=== PATIENT | female | born 1990 | race Caucasian/White ===

== ENCOUNTER 2016-03-24 14:00 | Outpatient (RCR) | payer OTHER | END 2016-03-25 | disposition home or self-care (01) | LOC: M OUTALCOH 14:00 | PROVIDERS: ATTEND Psychiatry & Neurology Psychiatry | DX: F11.20 Opioid dependence, uncomplicated (principal); F17.200 Nicotine dependence, unspecified, uncomplicated ==

== ENCOUNTER → 2016-04-22 | Outpatient (RCR) | payer OTHER | LOC: M OUTALCOH 03-28 15:13 | PROVIDERS: ATTEND Psychiatry & Neurology Psychiatry | DX: F11.20 Opioid dependence, uncomplicated (principal); F17.200 Nicotine dependence, unspecified, uncomplicated ==

== ENCOUNTER 2016-05-22 15:00 | Outpatient (RCR) | payer SELFPAY | END 2016-05-23 | LOC: M OUTALCOH 15:00 | PROVIDERS: ATTEND Psychiatry & Neurology Psychiatry | DX: F11.20 Opioid dependence, uncomplicated (principal); F17.200 Nicotine dependence, unspecified, uncomplicated ==

== ENCOUNTER 2016-06-17 10:00 | Outpatient (RCR) | payer OTHER, SELFPAY | END 2016-06-22 | LOC: M OUTALCOH 10:00 | PROVIDERS: ATTEND Psychiatry & Neurology Psychiatry | DX: F11.20 Opioid dependence, uncomplicated (principal); F17.210 Nicotine dependence, cigarettes, uncomplicated ==

== ENCOUNTER → 2016-07-23 | Outpatient (RCR) | payer OTHER | LOC: M OUTALCOH 06-24 10:00 | PROVIDERS: ATTEND Psychiatry & Neurology Psychiatry | DX: F11.20 Opioid dependence, uncomplicated (principal); F17.201 Nicotine dependence, unspecified, in remission ==

== ENCOUNTER 2016-08-20 16:00 | Outpatient (RCR) | payer MEDICAID | END 2016-08-22 | LOC: M OUTALCOH 16:00 | PROVIDERS: ATTEND Psychiatry & Neurology Psychiatry | DX: F11.20 Opioid dependence, uncomplicated (principal); F17.200 Nicotine dependence, unspecified, uncomplicated ==

== ENCOUNTER → 2017-01-28 | Outpatient (CLI) | payer OTHER | LOC: M OUTALCOH 08:13 | PROVIDERS: ATTEND Psychiatry & Neurology Psychiatry | DX: F11.20 Opioid dependence, uncomplicated (principal) ==

== ENCOUNTER 2017-02-05 11:28 | Outpatient (RCR) | payer OTHER | END 2017-02-22 | LOC: M OUTALCOH 11:28 | DX: F11.20 Opioid dependence, uncomplicated (principal); F17.200 Nicotine dependence, unspecified, uncomplicated ==

== ENCOUNTER → 2017-03-04 | Outpatient (REF) | payer OTHER | LOC: M LAB REF 12:17 | DX: F19.11 Other psychoactive substance abuse, in remission (principal) ==

== ENCOUNTER → 2017-03-11 | Outpatient (REF) | payer OTHER | LOC: M LAB REF 19:30 | DX: F19.11 Other psychoactive substance abuse, in remission (principal) ==

== ENCOUNTER → 2017-03-18 | Outpatient (REF) | payer OTHER, MEDICAID | LOC: M LAB REF 19:34 | DX: F19.11 Other psychoactive substance abuse, in remission (principal) | CPT/HCPCS: 80348 ==

== ENCOUNTER → 2017-03-25 | Outpatient (REF) | payer OTHER, MEDICAID | LOC: M LAB REF 19:13 | DX: F19.11 Other psychoactive substance abuse, in remission (principal) ==

== ENCOUNTER 2022-07-27 15:50 | Observation (INO) | payer MEDICAID, OTHER ==
[~2022-07-27] VITALS: Ht 175.3 cm; Wt 50.0 kg
[2022-07-27] MEDS ORDERED: LR 1,000 ML IV ONE (17:00)
[2022-07-27 17:44] LABS: BASO % 0.2 % (0.0-1.0); EOS % 0.5 % (0.0-3.0); HEMATOCRIT 30.9 % (36.0-47.0); HEMOGLOBIN 9.4 g/dl (12.0-15.5); LYMPH # 3.3 10^3/uL (1.5-5.0); LYMPH % 40.3 % (24.0-44.0); MEAN CORPUSCULAR HEMOGLOBIN 22.8 pg (27.0-33.0); MEAN CORPUSCULAR HGB CONC 30.4 g/dl (32.0-36.5); MEAN CORPUSCULAR VOLUME 74.8 fl (80.0-96.0); MONO # 0.3 10^3/uL (0.0-0.8); MONO % 3.1 % (2.0-8.0); NEUTROPHILS # 4.6 10^3/uL (1.5-8.5); NEUTROPHILS % 55.7 % (36.0-66.0); PLATELET COUNT, AUTOMATED 523 10^3/uL (150-450); RED BLOOD COUNT 4.13 10^6/uL (4.00-5.40); WHITE BLOOD COUNT 8.3 10^3/uL (4.0-10.0)
[2022-07-27 17:58] LABS: ERYTHROCYTE SEDIMENTATION RATE 109 mm/hr (0-20)
[2022-07-27 18:01] LABS: C REACTIVE PROTEIN QUANTITATIV < 0.40 MG/DL (<1.0)
[2022-07-27 18:07] LABS: ALBUMIN 2.9 G/DL (3.2-5.2); ALKALINE PHOSPHATASE 225 U/L (46-116); ALT/SGPT 20 U/L (7.0-40); AST/SGOT 29 U/L (<34); BILIRUBIN,TOTAL 0.2 MG/DL (0.3-1.2); BLOOD UREA NITROGEN 17 MG/DL (9-23); CALCIUM LEVEL 7.8 MG/DL (8.5-10.1); CARBON DIOXIDE LEVEL 23 MMOL/L (20-31); CHLORIDE LEVEL 105 MMOL/L (98-107); CPK CREATINE PHOSPHOKINASE < 15 U/L (34-145); CREATININE FOR GFR 0.81 MG/DL (0.55-1.30); GLOMERULAR FILTRATION RATE > 60.0 (>60); GLUCOSE, FASTING 100 MG/DL (60-100); SODIUM LEVEL 137 MMOL/L (136-145)
[2022-07-27 18:19] LABS: HCG, SERUM QUALITATIVE NEGATIVE (NEGATIVE)
[2022-07-27] MEDS ORDERED: KETOROLAC 30 MG/ML 1ML VIAL IV ONE (19:00)
[2022-07-27 19:18] VITALS: BP 123/76; TEMP 97.5; O2SAT 100
[2022-07-27] MEDS ORDERED: COMBIVENT RESPIMAT 100-20MCG INHALER 4GM INH SCH (20:00)
[2022-07-27] MEDS ORDERED: BIKT1TAB PO (21:17)
[2022-07-27] MEDS ORDERED: SERT25TA21 PO (21:17)
[2022-07-27] MEDS ORDERED: HOME MED LIST COMPLETE! XX SCH (21:20)
[2022-07-27] MEDS ORDERED: ACETAMINOPHEN TAB 650MG DOSE (2X325MG) PO PRN (21:25)
[2022-07-28] MEDS ORDERED: KETOROLAC 30 MG/ML 1ML VIAL IV PRN (01:00)
[2022-07-28] MEDS ORDERED: TRUVADA 200MG/300MG TABLET PO SCH (09:00)
== END 2022-07-27 22:04 | disposition left against medical advice (07) ==
LOC: M ED 15:50 → M ED INP 15:51
PROVIDERS: ADMIT Internal Medicine; ATTEND Internal Medicine
DX: L97.122 Non-pressure chronic ulcer of left thigh with fat layer exposed (principal); L97.112 Non-pressure chronic ulcer of right thigh with fat layer exposed; L98.499 Non-pressure chronic ulcer of skin of other sites with unspecified severity; B95.7 Other staphylococcus as the cause of diseases classified elsewhere; E86.0 Dehydration; F11.188 Opioid abuse with other opioid-induced disorder; B20 Human immunodeficiency virus [HIV] disease; E43 Unspecified severe protein-calorie malnutrition; F17.210 Nicotine dependence, cigarettes, uncomplicated; Z79.899 Other long term (current) drug therapy
CPT/HCPCS: 73552; 80047; 80053; 82550; 83605; 84702; 84703; 85025; 85652; 86140; 87040; 87077; 87186; 96361; 96374; 99283; J1885